=== PATIENT | male | born 1990 | race Caucasian/White ===

== ENCOUNTER → 2018-06-16 10:52 | Outpatient (CLI) | payer BC, SELFPAY ==
[2014-11-20 23:58] VITALS: BMI 26.6
[2018-06-16 12:30] LABS: Hematocrit 44.5 % (40-54); Hemoglobin 15.2 g/dl (13.0-16.5); Mean Corp Hgb Conc 34.2 g/gl (32-36); Mean Corpuscular Hgb 30.3 pg (27.0-32.0); Mean Corpuscular Volume 88.6 fL (80-94); Mean Platelet Vol. 11.2 fl (6.2-12.0); Platelet Count 198 K/mm3 (150-450); RBC Distribution Width CV 13.3 % (11.6-14.6); RBC Distribution Width SD 42.9 fl (35.1-43.9); Red Blood Count 5.02 M/mm3 (4.6-6.2); White Blood Count 5.6 K/mm3 (4.4-11.0)
[2018-06-16 12:33] LABS: Scan Indicated on CBC? Y/N NO
[2018-06-16 12:54] LABS: Thyroid Stim Hormone (TSH) 1.14 uIU/mL (0.358-3.74)
[2018-06-16 13:05] LABS: Vitamin B12 429 pg/mL (211-911); Vitamin D,25 Hydroxy 27.8 ng/mL (29.95-100.01)
== END ==
PROVIDERS: Family Provider Family Medicine; PCP Family Medicine; Visit Provider Family Medicine
DX: R53.83 Other fatigue (principal)
CPT/HCPCS: 36415; 82306; 82607; 84443; 85027

== ENCOUNTER 2018-06-24 17:14 | Emergency (ER) | payer OTHER, BC, SELFPAY ==
[2018-06-24 17:16] VITALS: BP 131/76; PULSE 82; RESP 14; TEMP 36.1; O2SAT 98; BMI 27.3
--- NOTE | 2018-06-24 17:30 | RAD_ITS ---
STUDY: X-RAY - RIGHT WRIST REASON FOR EXAM: Male, 28 years old. Wrist and hand pain TECHNIQUE: 3 view(s) of the wrist were obtained. COMPARISON: None. FINDINGS: Normal visualized distal radius and ulna. Normal radiocarpal articulation. Normal distal radioulnar articulation. Normal carpal bones. Normal carpal articulations. Normal carpometacarpal articulation of the thumb. Normal second through fifth carpometacarpal articulations. Normal visualized metacarpal bones. The soft tissue structures are unremarkable. RAD/Wrist min 3 Views IMPRESSION: Normal x-ray examination of the wrist. Electronically Signed: Nathaniel Quintana MD at 18:17 EST , Service support ,
--- NOTE | 2018-06-24 17:37 | ED.VISSUMM ---
- ER Visit Summary Date of Service: 06/24/18 Chief Complaint: Right hand and wrist injury History of Present Illness: The patient is a 28 M who presents with injury to his right wrist and hand that occurred yesterday while at work. Patient states a 30 pound object fell from the table and landed on his right wrist and hand. Patient states the pain is constant aching but is sharp with certain movements. Patient admits to some tingling in his fingers. Patient denies any other injuries. Patient denies any weakness. Patient denies any other symptoms. Physical Examination: Vital signs are stable. Patient is afebrile. Patient is in no acute distress. Musculoskeletal exam reveals tenderness, edema, and some mild ecchymosis over the metacarpals of the right hand and radial aspect of the right wrist. There is a superficial abrasion on the radial aspect of the right wrist. There is no bony crepitance or step-off. Range of motion was limited in all motions of the right wrist secondary to pain. Sensation was intact to light touch in all digits. Capillary refill was less than 2 seconds in all digits. Radial pulses are equal bilaterally. The remaining physical exam is within normal limits. Test Results: X-rays of the right wrist and right hand were obtained. There is a nondisplaced fracture of the base of the fifth metacarpal. Emergency Department Course and Treatment: Patient was placed in an ulnar gutter splint. Patient was given orthopedic referral for follow-up. Patient was also instructed to follow-up with [facility]. Patient was instructed to wear his splint at all times. Patient understood and was agreeable with the plan. All questions were answered. Disposition: Discharged home Impression: Acute fracture right fifth metacarpal This note was generated with [employer] dictation software. It may contain incorrect words, spelling, and punctuation that were not noted in review of the chart prior to signing ED Disposition - Plan for ED Patient: Disposition: Home or Assisted Living Chief Complaint: Upper Extremity Injury Diagnosis: Closed fracture of fifth metacarpal bone of right hand Instructions: ED Fx Hand Closed Prescriptions: Hydrocodone Bitart/Apap 5-325 [Maramec 5MG-325MG] 1 tab PO Q6H PRN PRN 3 Days #10 tab PRN Reason: Pain Referrals: James Ortez MD [Primary Care Provider] -
--- NOTE | 2018-06-24 17:40 | RAD_ITS ---
STUDY: X-RAY - RIGHT HAND REASON FOR EXAM: Male, 28 years old. Trauma TECHNIQUE: 3 view(s) of the hand. COMPARISON: None. FINDINGS: Normal radiocarpal articulation. Normal distal radioulnar joint. Normal visualized carpal bones. Normal carpal articulations Normal carpometacarpal articulation of the thumb. Normal second through fifth carpometacarpal joints. There is a nondisplaced transverse fracture of the base of the fifth metacarpal. Normal metacarpophalangeal joint of the thumb. Normal interphalangeal joint of the thumb. Normal proximal and distal phalanges of the thumb. Normal metacarpophalangeal joints of the second through fifth fingers. Normal proximal and distal interphalangeal joints of the second through fifth fingers. Normal phalanges of the second through fifth fingers. The soft tissue structures are unremarkable. RAD/Hand Min 3 Views IMPRESSION: Nondisplaced transverse fracture of the fifth metacarpal base. Electronically Signed: Sundar Ramos MD at 18:39 EST , Service support ,
--- NOTE | 2018-06-24 19:53 | ED.RN ---
DISCHARGE INSTRUCTIONS GIVEN TO AND REVIEWED WITH PATIENT, PATIENT DENIES QUESTIONS OR CONCERNS AND VOICES UNDERSTANDING OF DISCHARGE INSTRUCTIONS. PT AMBULATES OUT OF ROOM WITHOUT DIFFICULTY.
== END 2018-06-24 19:57 | disposition home or self-care (01) ==
PROVIDERS: Emergency Provider Emergency Medicine; Family Provider Family Medicine; PCP Family Medicine
DX: S62.346A Nondisplaced fracture of base of fifth metacarpal bone, right hand, initial encounter for closed fracture (principal); S60.811A Abrasion of right wrist, initial encounter; W22.8XXA Striking against or struck by other objects, initial encounter; Y93.9 Activity, unspecified; Y92.9 Unspecified place or not applicable
CPT/HCPCS: 29125; 73110; 73130; 99281

== ENCOUNTER → 2018-06-25 07:00 | Outpatient (CLI) | payer BC, SELFPAY ==
[2018-06-24 17:16] VITALS: BMI 27.3
--- NOTE | 2018-06-25 07:04 | CT_ITS ---
STUDY: CT BRAIN WITHOUT CONTRAST REASON FOR EXAM: Male, 28 years old. 3 year history of increasing frequency of headaches. RADIATION DOSAGE (If Supplied By Facility): CTDIvol = ( 44.99 ) mGy, DLP = ( 779.26 ) mGycm TECHNIQUE: Transaxial CT imaging of the brain was performed without administration of intravenous contrast material. Individualized dose optimization techniques were used for this CT. COMPARISON: None. FINDINGS: Normal soft tissue structures. Normal calvarium. Normal size ventricles and extra-axial spaces for the patient's age. Normal white matter tracts of the cerebral hemispheres. Normal basal ganglia and thalami. Normal brainstem. Normal cerebellum. There is no intracranial hemorrhage. There are no findings of an acute ischemic infarction. Normal visualized paranasal sinuses. CT/Brain/Head without Contrast IMPRESSION: Normal unenhanced CT scan of the brain. Electronically Signed: Jamal Hernandez MD at 14:47 EST Tel [phone], Service support ,
== END ==
PROVIDERS: Family Provider Family Medicine; PCP Family Medicine; Referring Provider Family Medicine; Visit Provider Family Medicine
DX: R51 Headache (principal)
CPT/HCPCS: 70450

== ENCOUNTER → 2021-10-24 | Outpatient (CLI) | payer BC, SELFPAY ==
--- NOTE | 2021-10-24 11:44 | RAD_ITS ---
INDICATION: CHEST PAIN EXAMINATION/TECHNIQUE: X-RAY - XR Chest 2 Views COMPARISON: 04/04/2014. FINDINGS: The lungs are clear. The cardiomediastinal silhouette is unremarkable. No pleural effusion or pneumothorax. No acute osseous abnormalities. RAD/Chest PA and Lateral IMPRESSION: No acute radiographic abnormalities. Electronically Signed: Warren Ram MD at 17:30 EDT ,
[2021-10-24 15:16] LABS: Hematocrit 42.8 % (40-54); Hemoglobin 14.6 g/dL (13.0-16.5); Mean Corp Hgb Conc 34.1 g/dL (32-36); Mean Corpuscular Hgb 30.7 pg (27.0-32.0); Mean Corpuscular Volume 89.9 fL (80-94); Mean Platelet Vol. 10.9 fl (6.2-12.0); Platelet Count 201 K/mm3 (150-450); RBC Distribution Width CV 12.6 % (11.6-14.6); RBC Distribution Width SD 41.5 fl (35.1-43.9); Red Blood Count 4.76 M/mm3 (4.6-6.2); White Blood Count 6.5 K/mm3 (4.4-11.0)
[2021-10-24 15:32] LABS: Anion Gap 6 (5-15); BUN 10 mg/dL (7-18); BUN/Creat Ratio 10.8 RATIO (10-20); Calcium,Total 8.7 mg/dL (8.5-10.1); Chloride 108 mmol/L (98-107); Creatinine, Serum 0.92 mg/dL (0.70-1.30); EST Glomerular Filtration Rate 100 mL/min (>60); Est Glom Filt Rate - Afr Amer 121 mL/min (>60); Glucose 93 mg/dL (74-106); Magnesium 2.2 mg/dL (1.6-2.6); Potassium 3.5 mmol/L (3.5-5.1); Sodium Level 141 mmol/L (136-145); Thyroid Stim Hormone (TSH) 1.79 uIU/mL (0.358-3.74)
== END | disposition home or self-care (01) ==
LOC: MTLAB 11:43
PROVIDERS: PCP Family Medicine; Referring Provider Family Medicine; Visit Provider Family Medicine
DX: R07.9 Chest pain, unspecified (principal)
CPT/HCPCS: 36415; 71046; 80048; 83735; 84443; 85027

== ENCOUNTER → 2021-11-07 | Outpatient (CLI) | payer BC, SELFPAY ==
--- NOTE | 2021-11-07 10:48 | ECHOD_ITS ---
Reason For Study: CHEST PAIN Procedure This was a 2D Doppler, Color Flow transthoracic echocardiogram. Exam performed in department. Left Ventricle Normal LV size. The estimated ejection fraction is 55 %. No evidence for diastolic dysfunction. No regional wall motion abnormalities noted. Right Ventricle Normal RV size. Normal systolic function. Atria Normal left atrium. Normal right atrium. No doppler evidence for ASD. Mitral Valve There is no mitral valve stenosis. No mitral valve insufficiency. Tricuspid Valve There is no tricuspid stenosis. Trivial tricuspid valve insufficiency. Unable to estimate RV systolic pressure due to insufficient tricuspid regurgitant envelope. Aortic Valve Trisinus/trileaflet aortic valve. There is no aortic stenosis. No aortic valve insufficiency. Pulmonic Valve There is no pulmonic valvular stenosis. Trivial pulmonic valve insufficiency. Great Vessels Normal aortic root. Pericardium/Pleural No pericardial effusion. MMode/2D Measurements & Calculations LVIDd: 4.6 cm IVSd: 0.74 cm Ao root diam: 3.0 cm LVIDs: 3.1 cm LVPWd: 0.69 cm RVDd: 3.6 cm FS: 32.8 % LAV(MOD-bp): 33.6 ml LVAd ap4: 32.7 cm2 SV(MOD-sp4): 63.4 ml LAV(MOD-bp) Indexed: 17.0 ml/m2 LVLd ap4: 8.3 cm LAV(MOD-sp2): 36.2 ml EDV(MOD-sp4): 103.2 ml LAV(MOD-sp4): 30.7 ml EDV(sp4-el): 109.0 ml LVAs ap4: 18.3 cm2 LVLs ap4: 7.1 cm ESV(MOD-sp4): 39.8 ml ESV(sp4-el): 40.3 ml EF(MOD-sp4): 61.4 % EF(sp4-el): 63.1 % SV(sp4-el): 68.8 ml LA A4 area: 13.3 cm2 LA dimension(2D): 3.4 cm RA A4 area: 11.9 cm2 Time Measurements MV dec time: 0.26 sec Doppler Measurements & Calculations MV E max santosh: 76.3 cm/sec Lat Peak E' Santosh: 22.2 cm/sec Med Peak E' Santosh: 13.6 cm/sec MV A max santosh: 50.7 cm/sec E/E' lat: 3.4 E/E' med: 5.6 MV E/A: 1.5 Ao V2 max: 119.2 cm/sec LV V1 max: 99.0 cm/sec PA V2 max: 94.1 cm/sec Ao max P.7 mmHg LV V1 max P.9 mmHg PI end-d santosh: 88.8 cm/sec TR max santosh: 218.0 cm/sec TR max P.0 mmHg ECHO/Echo Complete Interpretation Summary The estimated ejection fraction is 55 %. No evidence for diastolic dysfunction. Ordering Physician: James Ortez Referring Physician: James Ortez Performed By: Rissa Fishman RDCS
== END | disposition home or self-care (01) ==
LOC: CVS 10:47
PROVIDERS: PCP Family Medicine; Referring Provider Family Medicine; Visit Provider Family Medicine
DX: R07.9 Chest pain, unspecified (principal)
CPT/HCPCS: 93306

== ENCOUNTER → 2021-12-18 | Outpatient (CLI) | payer BC, SELFPAY ==
--- NOTE | 2021-12-18 13:18 | STRESSREP ---
Stress Test Report Date: 12-18-2021 Procedure: Exercise tolerance test Indications: Chest pain; dyspnea on exertion; dizziness/lightheadedness Consent: Per the patient Procedure: The patient exercised on a Dany protocol for 13 minutes completing Stage IV and 1 minute of Stage V achieving a peak heart rate of 193 bpm (103% predicted maximal heart rate) with a peak blood pressure 144/64 mmHg and a peak MET capacity of approximately 17 MET's. The baseline ECG demonstrated normal sinus rhythm. The peak exercise ECG demonstrated no obvious ECG changes. There were no cardiac dysrhythmias pretest, during exercise, or recovery. The functional capacity was considered excellent. The patient had no complaint of chest discomfort during exercise or recovery. The examination was discontinued secondary to dyspnea. Impression: 1. Technically adequate (percent predicted maximal heart rate greater than 85%) exercise tolerance test 2. Peak exercise ECG with with no obvious ECG changes 3. There were no cardiac dysrhythmias during exercise or recovery This note was generated with [employer] software. It may contain incorrect words, spelling, and punctuation that were not noted in checking the note before signing.
== END | disposition home or self-care (01) ==
PROVIDERS: PCP Family Medicine; Visit Provider Family Medicine
DX: R07.9 Chest pain, unspecified (principal)
CPT/HCPCS: 93017

== ENCOUNTER → 2022-01-07 | Outpatient (CLI) | payer BC, SELFPAY ==
[2022-01-07 12:15] LABS: Erythrocyte Sedimentation Rate 2 mm/hr (0-20)
[2022-01-07 12:20] LABS: Absolute Neutrophil Count 2.8 X10^3/uL (2.0-7.7); Basophil# 0.03 X10^3/uL; Basophil% 0.5 % (0-1); Eosinophil# 0.13 X10^3/uL; Hematocrit 43.9 % (40-54); Hemoglobin 14.7 g/dL (13.0-16.5); Mean Corp Hgb Conc 33.5 g/dL (32-36); Mean Corpuscular Hgb 30.6 pg (27.0-32.0); Mean Corpuscular Volume 91.3 fL (80-94); Mean Platelet Vol. 10.9 fl (6.2-12.0); Monocyte% 9.4 % (0-10); NRBC Flagged by Analyzer 0 % (0-5); Neutrophil # 2.79 X10^3/uL (2.7-7.7); Neutrophil % 43.9 % (47-70); Platelet Count 215 K/mm3 (150-450); RBC Distribution Width CV 12.8 % (11.6-14.6); RBC Distribution Width SD 43.3 fl (35.1-43.9); Red Blood Count 4.81 M/mm3 (4.6-6.2); White Blood Count 6.4 K/mm3 (4.4-11.0)
[2022-01-07 12:41] LABS: ALB/GLOB Ratio 1.2 RATIO (0.9-2.4); AST(SGOT) 24 U/L (15-37); Alanine Aminotransfer ALT/SGPT 36 U/L (16-61); Alkaline Phosphatase 75 U/L (45-117); Anion Gap 6 (5-15); BUN 13 mg/dL (7-18); BUN/Creat Ratio 13.2 RATIO (10-20); CRP < 2.90 mg/L (0.0-3.0); Calcium,Total 9.3 mg/dL (8.5-10.1); Chloride 106 mmol/L (98-107); Creatinine, Serum 0.98 mg/dL (0.70-1.30); EST Glomerular Filtration Rate 93 mL/min (>60); Est Glom Filt Rate - Afr Amer 112 mL/min (>60); Globulin 3.4 g/dL (2.2-4.2); Glucose 103 mg/dL (74-106); Potassium 4.2 mmol/L (3.5-5.1); Protein, Total 7.4 g/dL (6.4-8.2); Sodium Level 140 mmol/L (136-145)
== END | disposition home or self-care (01) ==
LOC: MFPLAB 10:50
PROVIDERS: PCP Family Medicine; Visit Provider Family Medicine
DX: R10.9 Unspecified abdominal pain (principal)
CPT/HCPCS: 36415; 80053; 85025; 85652; 86140

== ENCOUNTER → 2023-01-20 | Outpatient (CLI) | payer OTHER, SELFPAY ==
--- NOTE | 2023-01-20 10:10 | RAD_ITS ---
STUDY: X-RAY - CERVICAL SPINE REASON FOR EXAM: Male, 32 years old. PAIN TECHNIQUE: 7 view(s) of the cervical spine were obtained. COMPARISON: None FINDINGS: Normal anterior atlantoaxial articulation. Normal odontoid process. Straightening of the cervical lordosis. Normal vertebral bodies and endplates. Normal disc space heights. Normal visualized intervertebral neuroforamina. Normal flexion and extension. The soft tissue structures are unremarkable. RAD/Cerv Spine Obl/Flex/Ext Comp IMPRESSION: No acute pathology of the visualized cervical spine. Electronically Signed: Abisai Queen DO at 18:43 EDT Reading Location ID and State: [facility] / [place] Tel [phone], Service support ,
--- NOTE | 2023-01-20 10:11 | RAD_ITS ---
STUDY: X-RAY - LUMBAR SPINE REASON FOR EXAM: Male, 32 years old. PAIN TECHNIQUE: 4 view(s) of the lumbar spine were obtained. COMPARISON: None FINDINGS: Normal lumbar lordosis. There is a minimal levoscoliosis at the thoracolumbar junction. There is a normal alignment of the vertebrae. Normal vertebral bodies. Mild degenerative spurring of the endplates at L1-L3. Normal disc space heights. The soft tissue structures are unremarkable. Colonic fecal retention. RAD/L/S Spine Min 4 Views IMPRESSION: Mild degenerative changes and scoliosis of the lumbar spine. Electronically Signed: Abisai Queen DO at 19:53 EDT ,
[2023-01-20 12:13] LABS: Absolute Lymphocyte Count 2.79 X10^3/uL (0.83-4.51); Absolute Neutrophil Count 4.6 X10^3/uL (2.0-7.7); Basophil# 0.06 X10^3/uL; Basophil% 0.7 % (0-1); Eosinophil# 0.33 X10^3/uL; Eosinophils% 3.9 % (0-5); Hematocrit 44.3 % (40-54); Hemoglobin 14.8 g/dL (13.0-16.5); Lymphocyte # 2.79 X10^3/ul (0.83-4.51); Lymphocyte % 33.1 % (19-41); Mean Corp Hgb Conc 33.4 g/dL (32-36); Mean Corpuscular Hgb 30.3 pg (27.0-32.0); Mean Corpuscular Volume 90.8 fL (80-94); Mean Platelet Vol. 10.8 fl (6.2-12.0); Monocyte# 0.59 X10^3/uL; NRBC Flagged by Analyzer 0 % (0-5); Neutrophil # 4.63 X10^3/uL (2.7-7.7); Neutrophil % 54.9 % (47-70); Platelet Count 226 K/mm3 (150-450); RBC Distribution Width CV 12.6 % (11.6-14.6); RBC Distribution Width SD 41.8 fl (35.1-43.9); Red Blood Count 4.88 M/mm3 (4.6-6.2); White Blood Count 8.4 K/mm3 (4.4-11.0)
[2023-01-20 12:34] LABS: ALB/GLOB Ratio 1.2 RATIO (0.9-2.4); AST(SGOT) 20 U/L (15-37); Alanine Aminotransfer ALT/SGPT 26 U/L (16-61); Albumin, Serum 4.2 g/dL (3.2-5.0); Alkaline Phosphatase 82 U/L (45-117); Anion Gap 5 (5-15); BUN 13 mg/dL (7-18); BUN/Creat Ratio 14.4 RATIO (10-20); Calcium,Total 9.4 mg/dL (8.5-10.1); Chloride 106 mmol/L (98-107); EST Glomerular Filtration Rate 102 mL/min (>60); Est Glom Filt Rate - Afr Amer 123 mL/min (>60); Globulin 3.6 g/dL (2.2-4.2); Glucose 93 mg/dL (74-106); Potassium 3.6 mmol/L (3.5-5.1); Protein, Total 7.8 g/dL (6.4-8.2); Sodium Level 139 mmol/L (136-145); Thyroid Stim Hormone (TSH) 2.58 uIU/mL (0.358-3.74)
[2023-01-20 12:50] LABS: Vitamin B12 355 pg/mL (211-911)
[2023-01-24 08:11] LABS: Testosterone, % Free 2.13 % (1.50-4.20); Testosterone, Free 5.79 ng/dL (5.00-21.00); Testosterone, Total 272 ng/dL (264-916)
== END | disposition home or self-care (01) ==
PROVIDERS: PCP Family Medicine; Referring Provider Family Medicine; Visit Provider Family Medicine
DX: G54.0 Brachial plexus disorders (principal); M43.10 Spondylolisthesis, site unspecified; M54.50 Low back pain, unspecified; N52.9 Male erectile dysfunction, unspecified; R20.2 Paresthesia of skin
CPT/HCPCS: 36415; 72052; 72110; 80053; 82607; 84402; 84403; 84443; 85025

== ENCOUNTER 2023-07-18 10:58 | Emergency (ER) | payer OTHER, SELFPAY ==
[2023-07-18 10:59] VITALS: BP 120/76; PULSE 67; RESP 12; TEMP 36.1; O2SAT 99; BMI 28.6
--- NOTE | 2023-07-18 11:15 | RAD_ITS ---
INDICATION: cough EXAMINATION/TECHNIQUE: X-RAY - XR Chest 1 View COMPARISON: October 24, 2021 FINDINGS: LINES/DEVICES: None. LUNGS: No consolidation, edema or effusion. No pneumothorax. MEDIASTINUM AND CARDIOVASCULAR STRUCTURES: Cardiac silhouette not enlarged. Central airways and mediastinal contour are unremarkable. BONES AND SOFT TISSUES: Unremarkable. RAD/Chest 1 View (Portable) IMPRESSION: No radiographic evidence of acute cardiopulmonary disease. Electronically Signed: Elodia Dunn MD at 11:29 EST ,
--- NOTE | 2023-07-18 11:15 | EDS_ITS ---
HPI HPI - URI History of Present Illness Chief Complaint: Cold Sx Informant: patient Onset/Context/Timing Onset: Today and Days Context: Gradual Onset Timing: Continuous Current Severity: Mild Maximum Severity: Mild Associated Symptoms Associated Symptoms: Positive for Myalgias and Nonproductive cough; Negative for Nausea, Vomiting or Diarrhea Narrative Narrative: 33-year-old male no significant past medical history. He has had URI symptoms for the last 3 days. Cough subjective fever but not documented, chills and night sweats. Daughter with similar symptoms. He has had no vomiting or diarrhea. Today felt lightheaded sitting on the toilet and had a syncopal episode in the second. Denies any injuries. No headache. No chest pain. No abdominal pain. Patient brought in by squad has received almost a liter of normal saline by squad. present in the room. Prior similar symptoms: Yes Recent Illness/Hospitalization: No ROS ROS ED ROS Narrative Subjective fever and chills. Sweats. Nonproductive cough. No vomiting or diarrhea. Review of Systems ROS Unobtainable: Denies due to encephalopathy Constitutional Constitutional ED: Reports chills, fever(s) and subjective Eyes Eyes: Denies blurry vision ENT ENT ED: Denies ear pain Cardiovascular Cardiovascular: Denies chest pain Respiratory/Chest Respiratory/Chest: Denies cough or dyspnea Gastrointestinal Gastrointestinal: Denies abdominal pain Genitourinary Genitourinary ED: Denies dysuria or hematuria Musculoskeletal Musculoskeletal: Denies arthralgias or back pain Integumentary Denies abscess or Abrasions Neurologic Neurologic: Denies headache(s) or paresthesias Psychiatric Psychiatric: Denies anxiety or depression Endocrine Endocrinology: Denies cold intolerance or heat intolerance Hematologic/Lymphatic Hematologic/Lymphatic: Denies easy bleeding, easy bruising or lymphadenopathy Allergic/Immunologic Allergic/Immunologic ED: Denies mouth swelling, tongue swelling or urticaria [facility] Medical History (Updated 07/18/23 @ 12:[address] Jessee Ramirez MD) Fractured skull Home Medications NK 07/18/23 [History Last Taken Unknown] Allergy/AdvReac Type Severity Reaction Status Date / Time No Known Allergies Allergy Verified 07/18/23 11:02 Family History Grandfather Aneurysm Social History Smoking Status: Never smoker alcohol intake: never EXAM Physical Exam Narrative Exam Narrative: 33-year-old male no acute distress vital signs stable afebrile. Current blood pressure 120/76. Pulse ox 99% room air no hypoxia. He is afebrile at 97. He does not look septic or toxic currently. H EENT exam unremarkable. Neck nontender no lymphadenopathy. Lungs clear to auscultation bilaterally. Heart regular rhythm no murmur. Abdomen soft nontender normal bowel sounds no peritoneal signs. Moving all 4 extremities. Calves nontender without edema or cords. Back nontender. Skin unremarkable. No petechiae or purpura. No significant rashes. Neurologically is awake and alert with no focal motor deficits. Answering questions following commands. Normal strength. Const Vital Signs: 07/18/23 10:59 07/18/23 11:06 07/18/23 11:37 Temperature 97.0 F L 97 F L Temperature Source Temporal Temporal Pulse Rate 67 67 Respiratory Rate 12 12 Respiratory Pattern Normal Blood Pressure 120/76 120/76 Blood Pressure Mean 90 90 Pulse Ox 99 99 Oxygen Delivery Method Room Air Room Air 07/18/23 12:00 Temperature Temperature Source Pulse Rate 66 Respiratory Rate 16 Respiratory Pattern Blood Pressure 113/69 Blood Pressure Mean 83 Pulse Ox 95 Oxygen Delivery Method Room Air Positive well nourished and well developed; Negative for obese, cachectic or contractures General Appearance ED: well developed and NAD; Negative for cachectic, contractures, cyanotic, diaphoretic or pallor Nutritional Appearance: Negative for cachectic or obese HEENT Reports dry mucous membranes; Denies moist mucous membranes normocephalic and atraumatic; Negative for scalp tenderness Face and Sinus: Negative for sinus tenderness Mouth ED: Yes dry mucous membranes Mouth: dry mucous membranes Teeth and Gingiva: Negative for caries Throat: posterior oropharynx normal Eyes PERRL and EOMs intact bilaterally General Eye ED: Negative for pale conjunctiva, scleral icterus or other Neck no lymphadenopathy, supple, no meningeal signs and no JVD General: Negative for anterior neck swelling, lymphadenopathy or other Resp normal respiratory effort and clear to auscultation bilaterally Effort and Inspection: Negative for retractions Auscultation: Negative for rales, rhonchi or wheezes Cardio S1 normal heart sound, S2 normal heart sound and no murmurs Rate: regular rate; Negative for bradycardia or tachycardic Rhythm: regular rhythm; Negative for abnormal rhythm GI non-tender, non-distended and no masses Inspection: Negative for abdominal distention Auscultation: normoactive bowel sounds Palpation: soft; Negative for tender or guarding Back/Spine no CVA tenderness and normal ROM General Back: Negative for CVA tenderness Cervical Spine: Negative for cervical spine tenderness Thoracic Spine / Upper Back: Negative for thoracic spinal tenderness Lumbar Spine / Lower Back: Negative for lumbar spinal tenderness Sacrum: Negative for tenderness Extremity normal to inspection and full ROM General Extremety ED: Negative for cyanosis, tenderness or other findings General Extremity: Negative for cyanosis or other findings Neuro oriented x3, CN's II-XII intact bilaterally and no sensory deficits noted Sensorium / Orientation: alert, oriented to person, oriented to place and oriented to time; Negative for orientation impaired, lethargic or stuporous Motor Exam: strength 5/5 throughout Psych mental status grossly normal Attitude: No agitated Mood & Affect: Negative for depressed, anxious or tearful Skin General Skin Exam: Negative for jaundice or pallor Lesions: no lesions Rashes: no rashes Trauma: Negative for abrasion MDM MDM MDM Narrative Medical decision making narrative: 33-year-old male suspect viral URI will have COVID and flu testing. Chest x-ray to rule out pneumonia but clinically I do not hear pneumonia. He is already received almost a liter normal saline for the squad. Screening CBC and chemistry due to a syncopal episode but I think it was just dehydrated. He is got a benign exam at this time. Repeat exam patient doing well 12:25 PM. He is feeling improved. He need to go the restroom by disconnecting the monitor he is walking across the hallway without difficulty. We have gone over his test so far awaiting his viral studies. Patient doing well at 12:40 PM will be discharged home. Fluids and rest. History & Record Review Discussion w/independent historian: Patient Additional record(s) reviewed:: No prior records Lab Data Attestation: I reviewed the patient's lab results. Lab results narrative: CBC shows no acute abnormality. White count is 6. H&H 13 and 39. Platelets 146. Electrolytes show gap of 5. Normal BUN of 13 creatinine 1. Glucose 106. Chest x-ray normal. Flu a positive. COVID and RSV negative. Labs: Laboratory Results - last 24 hr 07/18/23 11:23 WBC 6.8 RBC 4.43 L Hgb 13.3 Hct 39.4 L MCV 88.9 MCH 30.0 MCHC 33.8 RDW Std Deviation 40.2 RDW Coeff of Carmen 12.4 Plt Count 146 L MPV 11.3 Immature Gran % (Auto) 0.600 Neut % (Auto) 67.9 Lymph % (Auto) 18.7 L [place]quois % (Auto) 12.1 H Eos % (Auto) 0.3 Baso % (Auto) 0.4 Absolute Neuts (auto) 4.6 Absolute Lymphs (auto) 1.28 Nucleated RBC % 0 Sodium 137 Potassium 3.6 Chloride 107 Carbon Dioxide 25.0 Anion Gap 5 BUN 13 Creatinine 1.05 Estim Creat Clear Calc 107.85 Est GFR (MDRD) Af Amer 103 Est GFR (MDRD) Non-Af 85 BUN/Creatinine Ratio 12.4 Glucose 106 Calcium 8.5 Radiography Chest X-Ray - ED: 1 View, Read by ED Physician, Heart, Lungs, Mediastinum, Bony Structures and No Acute Disease Diagnostic Testing: Clinical Impression(s) from Imaging Studies Chest X-Ray 07/18/23 11:15 IMPRESSION: No radiographic evidence of acute cardiopulmonary disease. Electronically Signed: Elodia Dunn MD at 11:29 EST , Chest x-ray, portable, single view interpreted by myself and the radiologist shows no acute abnormality. Normal lung velasco. Normal cardiac silhouette. Discharge Plan Triage Chief Complaint: Cold Sx Other Complaint: Syncope ED Provider: Jessee Ramirez Dx/Rx/DC Orders Clinical Impression: Syncope, Influenza Instructions: The Flu (Influenza) Prescriptions: No Action NK Primary Care Provider: James Ortez Referrals: James Ortez MD [Primary Care Provider] - As Needed Activity Restrictions/Additional Instructions: Plenty of fluids and rest. Increase diet slowly as tolerated. You should progressively start feeling better. Follow-up with your doctor as needed. Disposition Disposition: Home, Self Care
[2023-07-18 11:37] VITALS: BP 120/76; PULSE 67; RESP 12; TEMP 36.1; O2SAT 99
--- OUTSIDE RECORDS SUMMARY | 2023-07-18 11:38 | XMS RPT_ITS | CCD ---
Author Name Unknown Address [address] [place] [address] Organization [facility] Care Team Providers Care Casting Machine Adjuster Name Role Phone DANIEL MORGAN (RUBBER FLAP CUTTER) Unavailable Unavailable KEEGAN LANTIGUA Unavailable Unavailable MARIA R CHRISTIANSON (RUBBER FLAP CUTTER) Unavailable Unava ilable Problems Problem Classification Problem Date Documented Da te Episodic/Chronic Unclassified (1 source) Unknown / UNK(Unknown) Onset: 01-13-2018 Results Test Name Value Interpretation Reference Range Facil ity Encounters Encounter Date Encounter Type Care Provider Facility Start: 01-13-2018 End: 01-14-2018 Patient encounter KEEGAN LANTIGUA [facility] Start: 01-01-2018 End: 01-01-2018 Patient encounter DANIEL (RUBBER FLAP CUTTER) EDDIE [facility] Summary Purpose Family History No Family History Records Found Advance Directives No Advanced Directives Records Found Additional Source Comments (unrecognized sect ion and content) No Status Records Found INFORMATION SOURCE (unrecogn ized section and content) FOR RECORDS PERTAINING TO PATIENTS WHO ARE OR HAVE BEEN ENROLLED IN A CHEMICAL DEPENDENCY/SUBSTANCEABUSE PROGRAM, SOME INFORMATION MAY BE OMITTED. This clinical summary was aggregated from multiple sources. Caution should be exercised in using it in the provision of clinical care. This summary normalizes information from multiple sources, and as a consequence, information in this document may materially change the coding, format and clinical context of patient data. In addition, data may be omitted in some cases. CLINICAL DECISIONS SHOULD BE BASED ON THE PRIMARY CLINICAL RECORDS. [employer] provides no warranty or guarantee of the accuracy or completeness of information in this document.
[2023-07-18 11:42] LABS: Absolute Lymphocyte Count 1.28 X10^3/uL (0.83-4.51); Absolute Neutrophil Count 4.6 X10^3/uL (2.0-7.7); Basophil# 0.03 X10^3/uL; Basophil% 0.4 % (0-1); Eosinophil# 0.02 X10^3/uL; Eosinophils% 0.3 % (0-5); Hematocrit 39.4 % (40-54); Hemoglobin 13.3 g/dL (13.0-16.5); Lymphocyte # 1.28 X10^3/ul (0.83-4.51); Lymphocyte % 18.7 % (19-41); Mean Corp Hgb Conc 33.8 g/dL (32-36); Mean Corpuscular Volume 88.9 fL (80-94); Mean Platelet Vol. 11.3 fl (6.2-12.0); Monocyte# 0.83 X10^3/uL; Monocyte% 12.1 % (0-10); NRBC Flagged by Analyzer 0 % (0-5); Neutrophil # 4.64 X10^3/uL (2.7-7.7); Neutrophil % 67.9 % (47-70); Platelet Count 146 K/mm3 (150-450); RBC Distribution Width CV 12.4 % (11.6-14.6); RBC Distribution Width SD 40.2 fl (35.1-43.9); Red Blood Count 4.43 M/mm3 (4.6-6.2); White Blood Count 6.8 K/mm3 (4.4-11.0)
[2023-07-18 11:51] LABS: Anion Gap 5 (5-15); BUN 13 mg/dL (7-18); BUN/Creat Ratio 12.4 RATIO (10-20); Calcium,Total 8.5 mg/dL (8.5-10.1); Chloride 107 mmol/L (98-107); Creatinine, Serum 1.05 mg/dL (0.70-1.30); EST Glomerular Filtration Rate 85 mL/min (>60); Est Glom Filt Rate - Afr Amer 103 mL/min (>60); Estimated Creatinine Clearance 107.85 ml/min; Glucose 106 mg/dL (74-106); Potassium 3.6 mmol/L (3.5-5.1); Sodium Level 137 mmol/L (136-145)
[2023-07-18 12:00] VITALS: BP 113/69; PULSE 66; RESP 16; O2SAT 95
[2023-07-18 12:41] VITALS: BP 116/83; PULSE 64; RESP 14; O2SAT 95
== END 2023-07-18 12:49 | disposition home or self-care (01) ==
PROVIDERS: Emergency Provider Emergency Medicine; PCP Family Medicine; Visit Provider Emergency Medicine
DX: J10.1 Influenza due to other identified influenza virus with other respiratory manifestations (principal); R55 Syncope and collapse
CPT/HCPCS: 71045; 80048; 85025; 87631; 99283; A4216

== ENCOUNTER → 2024-11-01 | Outpatient (CLI) | payer BC, SELFPAY ==
[2024-11-01 09:58] LABS: Absolute Lymphocyte Count 2.75 X10^3/uL (0.83-4.51); Absolute Neutrophil Count 4.1 X10^3/uL (2.0-7.7); Basophil# 0.06 X10^3/uL; Basophil% 0.8 % (0-1); Eosinophil# 0.17 X10^3/uL; Eosinophils% 2.2 % (0-5); Hematocrit 39.2 % (40-54); Hemoglobin 13.7 g/dL (13.0-16.5); Lymphocyte # 2.75 X10^3/ul (0.83-4.51); Lymphocyte % 35.7 % (19-41); Mean Corp Hgb Conc 34.9 g/dL (32-36); Mean Corpuscular Hgb 31.3 pg (27.0-32.0); Mean Corpuscular Volume 89.5 fL (80-94); Mean Platelet Vol. 10.7 fl (6.2-12.0); Monocyte% 7.8 % (0-10); NRBC Flagged by Analyzer 0 % (0-5); Neutrophil # 4.11 X10^3/uL (2.7-7.7); Neutrophil % 53.2 % (47-70); Platelet Count 259 K/mm3 (150-450); RBC Distribution Width CV 12.5 % (11.6-14.6); Red Blood Count 4.38 M/mm3 (4.6-6.2); White Blood Count 7.7 K/mm3 (4.4-11.0)
[2024-11-01 10:22] LABS: Erythrocyte Sedimentation Rate 5 mm/hr (0-20)
[2024-11-01 10:53] LABS: ALB/GLOB Ratio 1.6 RATIO (0.9-2.4); AST(SGOT) 29 U/L (<=37); Alanine Aminotransfer ALT/SGPT 20 U/L (<=46); Albumin, Serum 4.3 g/dL (3.5-5.0); Alkaline Phosphatase 86 U/L (40-129); Anion Gap 13 (5-15); BUN 13 mg/dL (4-19); BUN/Creat Ratio 14.1 RATIO (10-20); Calcium,Total 9.2 mg/dL (7.6-11.0); Carbon Dioxide 21.9 mmol/L (21.0-32.0); Chloride 104 mmol/L (98-108); Creatinine, Serum 0.93 mg/dL (0.70-1.20); EST Glomerular Filtration Rate 109 (>60); Globulin 2.8 g/dL (2.2-4.2); Glucose 114 mg/dL (70-99); Potassium 3.7 mmol/L (3.3-5.1); Protein, Total 7.1 g/dL (5.9-8.4); Sodium Level 138 mmol/L (133-145); Total Bilirubin 0.32 mg/dL (0.00-1.30); Vitamin D,25 Hydroxy 40.6 ng/mL (30-100)
== END | disposition home or self-care (01) ==
LOC: MTLAB 08:13
PROVIDERS: PCP Family Medicine; Referring Provider Family Medicine; Visit Provider Family Medicine
DX: R45.86 Emotional lability (principal); G47.8 Other sleep disorders
CPT/HCPCS: 36415; 80053; 82306; 84403; 84443; 85025; 85652

== ENCOUNTER → 2024-11-29 | Outpatient (CLI) | payer BC, SELFPAY | END | disposition home or self-care (01) | LOC: MFPLAB 14:27 | PROVIDERS: PCP Family Medicine; Referring Provider Family Medicine; Visit Provider Family Medicine | DX: R79.89 Other specified abnormal findings of blood chemistry (principal) | CPT/HCPCS: 36415; 84402; 84403 ==